=== PATIENT | male | born 1980 | race Hispanic/Latino ===

== ENCOUNTER 2021-05-28 09:42 | Emergency (ER) | payer SELFPAY ==
[~2021-05-28] VITALS: Ht 180.3 cm; Wt 106.6 kg
[2021-05-28] MEDS ORDERED: METAMUCIL FIBE3.4 GM PO (10:49)
[2021-05-28] MEDS ORDERED: HYDROCORTISONE25 MG PR (10:49)
[2021-05-28] MEDS ORDERED: SITZ BATH PR (10:49)
[2021-05-28] MEDS ORDERED: KETOROLAC TROMETHAMINE 60 MG/2 ML VIAL ONE (11:00)
[2021-05-28] MEDS ORDERED: KETOROLAC TROMETHAMINE 60 MG/2 ML VIAL IM ONE (11:00)
== END 2021-05-28 12:45 | disposition home or self-care (01) ==
LOC: ER 09:50
DX: K62.89 Other specified diseases of anus and rectum (principal); K64.4 Residual hemorrhoidal skin tags
CPT/HCPCS: 99283; J1885

== ENCOUNTER 2021-10-02 21:09 | Emergency (ER) | payer SELFPAY ==
[~2021-10-02] VITALS: Ht 180.3 cm; Wt 103.0 kg
[~2021-10-02 21:09] MED LIST: HYDROCORTISONE25 MG PR; METAMUCIL FIBE3.4 GM PO; SITZ BATH PR
== END 2021-10-02 21:49 | disposition home or self-care (01) ==
LOC: ER 21:13
DX: L72.3 Sebaceous cyst (principal)
CPT/HCPCS: 99282